=== PATIENT | female | born 1960 ===

== ENCOUNTER 2021-12-23 14:23 | Outpatient (RCR) | payer OTHER | END 2022-01-12 | disposition home or self-care (01) | LOC: WSOH | DX: S76.912D Strain of unspecified muscles, fascia and tendons at thigh level, left thigh, subsequent encounter (principal); S83.422D Sprain of lateral collateral ligament of left knee, subsequent encounter; Y99.0 Civilian activity done for income or pay; K74.60 Unspecified cirrhosis of liver; Z98.890 Other specified postprocedural states ==

== ENCOUNTER 2022-01-21 11:29 | Outpatient (RCR) | payer OTHER | END 2022-02-11 | LOC: WSOH | DX: M25.562 Pain in left knee (principal) ==

== ENCOUNTER 2022-02-17 15:05 | Outpatient (RCR) | payer OTHER | END 2022-03-14 | disposition home or self-care (01) | LOC: WSOH | DX: S76.912D Strain of unspecified muscles, fascia and tendons at thigh level, left thigh, subsequent encounter (principal); S83.402D Sprain of unspecified collateral ligament of left knee, subsequent encounter; Y99.0 Civilian activity done for income or pay; K74.60 Unspecified cirrhosis of liver; M79.89 Other specified soft tissue disorders; Z98.890 Other specified postprocedural states ==

== ENCOUNTER 2022-03-01 16:00 | Outpatient (RCR) | payer OTHER | END 2022-03-14 | disposition home or self-care (01) | LOC: WSPT | DX: M25.562 Pain in left knee (principal) ==

== ENCOUNTER 2022-04-13 15:00 | Outpatient (RCR) | payer OTHER | END 2022-04-14 | disposition still patient (30) | LOC: WSPT | DX: M25.562 Pain in left knee (principal) ==

== ENCOUNTER 2022-12-10 13:58 | Outpatient (RCR) | payer OTHER | END 2022-12-12 | LOC: WSOH | DX: S76.912D Strain of unspecified muscles, fascia and tendons at thigh level, left thigh, subsequent encounter (principal); S83.402D Sprain of unspecified collateral ligament of left knee, subsequent encounter; Y99.0 Civilian activity done for income or pay ==